=== PATIENT | male | born 1990 | race Caucasian/White ===

== ENCOUNTER 2017-01-17 20:21 | Emergency (ER) | payer OTHER ==
[~2017-01-17] VITALS: Ht 172.7 cm; Wt 63.6 kg
[2017-01-17 20:21] VITALS: BP 116/77
[2017-01-17] MEDS ORDERED: CYCL10TA PO (21:32)
[2017-01-17] MEDS ORDERED: IBUP-1022 PO (21:32)
[2017-01-17] MEDS ORDERED: IBUPROFEN 600 MG TAB PO ONE (21:45)
[2017-01-17] MEDS ORDERED: CYCLOBENZAPRINE 10 MG TAB PO ONE (21:45)
== END 2017-01-17 21:43 | disposition home or self-care (01) ==
LOC: M ED 20:21
DX: M62.838 Other muscle spasm (principal)

== ENCOUNTER 2017-01-18 20:01 | Emergency (ER) | payer OTHER ==
[~2017-01-18] VITALS: Ht 172.7 cm; Wt 63.6 kg
[2017-01-18 20:01] VITALS: BP 125/84
[~2017-01-18 20:01] MED LIST: CYCL10TA PO; IBUP-1022 PO
== END 2017-01-18 22:02 | disposition left against medical advice (07) ==
LOC: M ED 20:01
DX: M54.2 Cervicalgia (principal); Z53.21 Procedure and treatment not carried out due to patient leaving prior to being seen by health care provider